=== PATIENT | male | born 1965 | race Two or more races ===

== ENCOUNTER 2018-02-24 08:58 | Outpatient (CLI) | payer OTHER ==
[~2018-02-24 08:58] MED LIST: NASONEX17 GM; TYZINE
== END 2018-02-24 09:18 | disposition home or self-care (01) ==
LOC: NUCLEAR 08:58
DX: M62.830 Muscle spasm of back (principal); M54.89 Other dorsalgia; M54.5 Low back pain; M25.50 Pain in unspecified joint; M25.512 Pain in left shoulder; M25.511 Pain in right shoulder; G89.29 Other chronic pain; M75.01 Adhesive capsulitis of right shoulder; M75.02 Adhesive capsulitis of left shoulder
CPT/HCPCS: 78306; A9503

== ENCOUNTER 2018-05-07 13:55 | Outpatient (CLI) | payer OTHER | END 2018-05-07 14:30 | disposition home or self-care (01) | LOC: RAD 13:55 | DX: M25.511 Pain in right shoulder (principal) ==

== ENCOUNTER → 2018-06-02 | Outpatient (CLI) | payer OTHER | END | disposition home or self-care (01) | LOC: TOM 09:00 | DX: R51 Headache (principal) ==

== ENCOUNTER 2018-12-23 09:47 | Outpatient (CLI) | payer OTHER | END 2018-12-23 09:49 | disposition home or self-care (01) | LOC: RAD 09:47 | DX: R00.8 Other abnormalities of heart beat (principal); R07.89 Other chest pain ==

== ENCOUNTER 2019-02-16 13:36 | Outpatient (CLI) | payer OTHER | END 2019-02-16 13:38 | disposition home or self-care (01) | LOC: RAD 13:36 | DX: M54.5 Low back pain (principal) ==

== ENCOUNTER → 2019-06-29 | Outpatient (CLI) | payer OTHER | END | disposition home or self-care (01) | LOC: RAD 11:09 | DX: M54.5 Low back pain (principal) ==

== ENCOUNTER 2020-03-28 08:51 | Outpatient (CLI) | payer OTHER | END 2020-03-28 10:47 | disposition home or self-care (01) | LOC: NUCLEAR 08:51 | PROVIDERS: ATTEND Specialist | DX: M25.50 Pain in unspecified joint (principal); R51 Headache | CPT/HCPCS: 78306; A9503 ==

== ENCOUNTER 2020-04-05 08:51 | Outpatient (CLI) | payer OTHER | END 2020-04-05 09:04 | disposition home or self-care (01) | LOC: TOM 08:51 | PROVIDERS: ATTEND Specialist | DX: R51 Headache (principal) ==

== ENCOUNTER 2020-08-01 12:32 | Outpatient (CLI) | payer OTHER | END 2020-08-01 12:46 | disposition home or self-care (01) | LOC: RAD 12:32 | PROVIDERS: ATTEND Specialist | DX: M25.512 Pain in left shoulder (principal); M25.511 Pain in right shoulder ==

== ENCOUNTER 2021-01-24 14:09 | Outpatient (CLI) | payer OTHER | END 2021-01-24 14:23 | disposition home or self-care (01) | LOC: RAD 14:09 | PROVIDERS: ATTEND Specialist | DX: M62.838 Other muscle spasm (principal) ==

== ENCOUNTER → 2021-05-28 11:01 | Outpatient (CLI) | payer OTHER | END | disposition home or self-care (01) | LOC: SONOGRAMA 11:01 | PROVIDERS: ATTEND General Practice | DX: M25.775 Osteophyte, left foot (principal); M72.2 Plantar fascial fibromatosis; M25.572 Pain in left ankle and joints of left foot; M79.672 Pain in left foot; R07.89 Other chest pain; M25.512 Pain in left shoulder; M54.6 Pain in thoracic spine ==

== ENCOUNTER 2021-06-21 11:04 | Outpatient (CLI) | payer OTHER | END 2021-06-21 11:14 | disposition home or self-care (01) | LOC: RAD 11:04 | PROVIDERS: ATTEND Specialist | DX: M25.512 Pain in left shoulder (principal); M25.511 Pain in right shoulder; M25.50 Pain in unspecified joint ==

== ENCOUNTER 2022-11-13 12:53 | Outpatient (CLI) | payer OTHER | END 2022-11-13 13:06 | disposition home or self-care (01) | LOC: RAD 12:53 | PROVIDERS: ATTEND Orthopaedic Surgery Sports Medicine | DX: M25.511 Pain in right shoulder (principal); M25.512 Pain in left shoulder ==

== ENCOUNTER 2024-03-24 11:21 | Outpatient (CLI) | payer OTHER | END 2024-03-24 11:29 | disposition home or self-care (01) | LOC: RAD 11:21 | PROVIDERS: ATTEND General Practice | DX: M54.9 Dorsalgia, unspecified (principal); G89.29 Other chronic pain ==

== ENCOUNTER 2025-05-05 13:04 | Outpatient (CLI) | payer OTHER | END 2025-05-05 13:06 | disposition home or self-care (01) | LOC: SONOGRAMA 13:04 | PROVIDERS: ATTEND Otolaryngology | DX: E04.1 Nontoxic single thyroid nodule (principal) ==

== ENCOUNTER 2025-05-26 10:48 | Outpatient (CLI) | payer OTHER | END 2025-05-26 10:52 | disposition home or self-care (01) | LOC: SONOGRAMA 10:48 | PROVIDERS: ATTEND Pathology Anatomic Pathology & Clinical Pathology | DX: D34 Benign neoplasm of thyroid gland (principal); E04.1 Nontoxic single thyroid nodule ==